=== PATIENT | female | born 1990 | race African-American/Black ===

== ENCOUNTER 2019-12-05 06:26 | Emergency (ER) | payer MEDICAID ==
[~2019-12-05] VITALS: Ht 157.5 cm; Wt 49.0 kg
--- NOTE | 2019-12-05 06:43 | NUR ---
Patient to the ER with c/o nausea and vomiting onset last night. Reports some abdominal discomfort after vomiting onset. No fever. LMP 11/26. Otherwise healthy with no daily medications. No urinary c/o
[2019-12-05] MEDS ORDERED: FAMOTIDINE 20 MG/2 ML ONE (06:57)
[2019-12-05] MEDS ORDERED: ONDANSETRON 2MG/ML, 2ML ONE (06:57)
[2019-12-05] MEDS ORDERED: FAMOTIDINE 20 MG/2 ML IV ONE (07:00)
[2019-12-05] MEDS ORDERED: SODIUM CHLORIDE FLUSH 10ML SYR IVF ONE (07:00)
[2019-12-05] MEDS ORDERED: ONDANSETRON 2MG/ML, 2ML IVPush ONE (07:00)
[2019-12-05] MEDS ORDERED: SODIUM CHLORIDE 0.9% 1,000ML IVBOLUS ONE (07:00)
--- NOTE | 2019-12-05 07:01 | NUR ---
Report given Zackary BHAGAT
--- NOTE | 2019-12-05 07:05 | NUR ---
report from rosana
[2019-12-05] MEDS ORDERED: ONDANSETRON ODT 8 MG ONE (07:17)
[2019-12-05] MEDS ORDERED: FAMOTIDINE 20 MG TABLET ONE (07:17)
[2019-12-05] MEDS ORDERED: FAMOTIDINE 20 MG TABLET PO ONE (07:30)
[2019-12-05] MEDS ORDERED: ONDANSETRON ODT 8 MG PO ONE (07:30)
--- NOTE | 2019-12-05 07:53 | NUR ---
PT STATES THE ZOFRAN HELPED A LITTLE. VSS. NO OTHER NEEDS
[2019-12-05 08:09] LABS: MEAN CORPUSCULAR HGB CONC 32.8 g/dL (32.4-35.8); MEAN CORPUSCULAR VOLUME 85.4 fL (80-100); MEAN PLATELET VOLUME 8.6 fL (7.4-10.4); PLATELET COUNT 389 x10^3/uL (130-400); RED BLOOD COUNT 4.67 x10^6/uL (3.82-5.3); RED CELL DISTRIBUTION WIDTH 14.8 % (9.6-15.2)
[2019-12-05 08:17] LABS: ALANINE AMINOTRANSFERASE 27 U/L (12-78); ALBUMIN 4.7 g/dL (3.4-5.0); ANION GAP 15 mmol/L (5-15); CALCIUM 10.5 mg/dL (8.5-10.1); CHLORIDE 99 mmol/L (98-107); CREATININE 0.94 mg/dL (0.55-1.02)
[2019-12-05 08:22] LABS: ALKALINE PHOSPHATASE 56 U/L (45-117); BILIRUBIN,TOTAL 0.5 mg/dL (0.2-1.0); TOTAL PROTEIN 9.9 g/dL (6.4-8.2)
[2019-12-05 08:43] LABS: BASOPHILS # (AUTO) 0.32 x10^3/uL (0-0.1); BASOPHILS % (AUTO) 2 % (0-1); EOSINOPHILS # (AUTO) 0.08 x10^3/uL (0-0.4); EOSINOPHILS % (AUTO) 1 % (1-7); LYMPHOCYTES # (AUTO) 0.56 x10^3/uL (1-3.4); LYMPHOCYTES % (AUTO) 4 % (22-44); MD SCAN; MONOCYTES # (AUTO) 0.74 x10^3/uL (0.2-0.8); MONOCYTES % (AUTO) 5 % (2-9); NEUTROPHILS # (AUTO) 12.81 x10^3/uL (1.8-6.8); NEUTROPHILS % (AUTO) 88 % (42-75)
[2019-12-05] MEDS ORDERED: PROMETHAZINE 25 MG/ML, 1ML ONE (08:46)
[2019-12-05 08:50] VITALS: BP 121/77
--- NOTE | 2019-12-05 08:52 | NUR ---
PT STILL NAUSEATED. TOLERATING PO OK. MEDICATED PER ORDERS.
[2019-12-05] MEDS ORDERED: PROMETHAZINE 25 MG/ML, 1ML IM ONE (09:00)
--- NOTE | 2019-12-05 09:40 | NUR ---
SLEEPING, BUT TOLERATING PO. VSS
--- NOTE | 2019-12-05 10:13 | NUR ---
Patient/Caregiver given discharge instructions and they have confirmed that they understand the instructions. Patient ambulatory with steady gait.
== END 2019-12-05 10:15 | disposition home or self-care (01) ==
LOC: ED 07:12
DX: R11.2 Nausea with vomiting, unspecified (principal)
CPT/HCPCS: 36415; 80053; 84703; 85025; 96372; 99283; J2550; Q0162

== ENCOUNTER 2019-12-06 16:18 | Observation (INO) | payer MEDICAID ==
[~2019-12-06] VITALS: Ht 157.5 cm; Wt 50.1 kg
--- NOTE | 2019-12-06 16:53 | NUR ---
PT BROUGHT BACK TO ROOM WHILE RN ON LUNCH. THIS RN ASSUMES CARE AT 1649. PT SITTING UP IN BED WITH EMESIS BAG, SPITTING INTO BAG, NO VOMITING. PT IN GOWN IN TO SEE PATIENT.
[2019-12-06] MEDS ORDERED: MAALOX/HYOSCYAMINE/LIDOCAINE 45 ML BTL PO ONE (17:00)
[2019-12-06] MEDS ORDERED: FAMOTIDINE 20 MG/2 ML IVPush ONE (17:00)
[2019-12-06] MEDS ORDERED: SODIUM CHLORIDE FLUSH 10ML SYR IVF ONE (17:00)
[2019-12-06] MEDS ORDERED: SODIUM CHLORIDE 0.9% 1,000ML IVBOLUS ONE ×2 (17:00→21:00)
[2019-12-06] MEDS ORDERED: ONDANSETRON 2MG/ML, 2ML IVPush ONE (17:00)
[2019-12-06] MEDS ORDERED: MAALOX/HYOSCYAMINE/LIDOCAINE 45 ML BTL ONE (17:15)
[2019-12-06] MEDS ORDERED: ONDANSETRON 2MG/ML, 2ML ONE (17:15)
[2019-12-06] MEDS ORDERED: FAMOTIDINE 20 MG/2 ML ONE (17:15)
[2019-12-06 17:19] LABS: BASOPHILS # (AUTO) 0.06 x10^3/uL (0-0.1); BASOPHILS % (AUTO) 0 % (0-1); EOSINOPHILS # (AUTO) 0.04 x10^3/uL (0-0.4); EOSINOPHILS % (AUTO) 0 % (1-7); LYMPHOCYTES # (AUTO) 1.08 x10^3/uL (1-3.4); LYMPHOCYTES % (AUTO) 7 % (22-44); MD NO; MEAN CORPUSCULAR HEMOGLOBIN 27.6 pg (27.0-34.8); MEAN CORPUSCULAR HGB CONC 32.6 g/dL (32.4-35.8); MEAN CORPUSCULAR VOLUME 84.7 fL (80-100); MONOCYTES # (AUTO) 0.99 x10^3/uL (0.2-0.8); MONOCYTES % (AUTO) 7 % (2-9); NEUTROPHILS # (AUTO) 12.78 x10^3/uL (1.8-6.8); NEUTROPHILS % (AUTO) 86 % (42-75); PLATELET COUNT 401 x10^3/uL (130-400); RED BLOOD COUNT 4.95 x10^6/uL (3.82-5.3); RED CELL DISTRIBUTION WIDTH 14.6 % (9.6-15.2)
[2019-12-06 17:25] LABS: ALANINE AMINOTRANSFERASE 25 U/L (12-78); ALBUMIN 4.7 g/dL (3.4-5.0); ANION GAP 15 mmol/L (5-15); CALCIUM 10.5 mg/dL (8.5-10.1); CHLORIDE 94 mmol/L (98-107); CREATININE 1.03 mg/dL (0.55-1.02)
--- NOTE | 2019-12-06 17:25 | NUR ---
IV PLACED AND MEDICATIONS GIVEN. PT STABLE. US AT BEDSIDE FOR US OF ABDOMEN. PT INSTRUCTED PROGRAM OR PROJECT ADMINISTRATOR LIGHT AND IT'S USE.
[2019-12-06 17:30] LABS: ALKALINE PHOSPHATASE 52 U/L (45-117); BILIRUBIN,TOTAL 0.5 mg/dL (0.2-1.0); TOTAL PROTEIN 9.9 g/dL (6.4-8.2)
--- NOTE | 2019-12-06 17:50 | NUR ---
PT INFORMED OF NEEDING TO OBTAIN A UA. CUP AT BEDSIDE, AND INSTRUCTIONS GIVEN TO PATIENT. 1L BOLUS HAS FINISHED INFUSING SO HOPEFULLY SOON UP FOR UA.
[2019-12-06] MEDS ORDERED: POTASSIUM CHLORIDE 20 MEQ TAB.ER.PRT PO ONE (18:30)
--- NOTE | 2019-12-06 18:43 | NUR ---
PT N/V GONE. PT INFORMED THAT WE REALLY NEED URINE FOR TESTING.
[2019-12-06] MEDS ORDERED: POTASSIUM CHLORIDE 20 MEQ TAB.ER.PRT ONE (18:50)
--- NOTE | 2019-12-06 19:30 | NUR ---
CONTINUED WITH NAUSEA AFTER TAKING POTASSIUM PILLS. NOTE IN FOR MD TO ORDER OR ADDRESS ISSUE.
[2019-12-06 19:43] LABS: MICROSCOPIC INDICATED
[2019-12-06] MEDS ORDERED: PROMETHAZINE 25 MG/ML, 1ML IM ONE (20:00)
[2019-12-06] MEDS ORDERED: OMNIPAQUE 350 MG/ML, 100ML BOTTLE ONE (20:22)
[2019-12-06] MEDS ORDERED: PROMETHAZINE 25 MG/ML, 1ML ONE (20:26)
--- NOTE | 2019-12-06 20:30 | NUR ---
ORDER FOR 25MG PHENERGAN IM, AND ADDITIONAL CT WITH CONTRAST. PT STABLE. WILL CONTINUE TO MONITOR.
--- NOTE | 2019-12-06 21:33 | NUR ---
SECOND LITER OF FLUIDS UP AND RUNNING.
[2019-12-06] MEDS ORDERED: POTASSIUM CHLORIDE 40 MEQ in SODIUM CHLORIDE 0.9% 1,000 ML IV ONE (21:40)
[2019-12-06] MEDS ORDERED: SODIUM CHLORIDE FLUSH 10ML SYR IVF PRN (22:00)
[2019-12-06] MEDS ORDERED: ONDANSETRON 2MG/ML, 2ML IVPush PRN (22:00)
--- NOTE | 2019-12-06 22:09 | NUR ---
REPORT TO WYATT BHAGAT. REQUEST TO SEND NS/KCL BAG TO FLOOR AND SHE WILL START THE FLUIDS UPSTAIRS. PT IS READY FOR DISCHARGE TO FLOOR. STATES "I FEEL BETTER AFTER THAT FLUID AGAIN". PT IS [place] FROM [facility].
[2019-12-06] MEDS ORDERED: SODIUM CHLORIDE 0.9% 1,000 ML IV SCH (22:29)
[2019-12-06] MEDS ORDERED: ACETAMINOPHEN 325 MG TABLET PO PRN (22:30)
[2019-12-06] MEDS ORDERED: LORazepam 2 MG/ML, 1ML IVPush PRN (22:30)
[2019-12-06] MEDS: NS + 40MEQ KCL 1,000 ML IV SCH (23:00)
[2019-12-06] MEDS ORDERED: DICYCLOMINE 10 MG/ML, 2ML IM PRN (23:00)
[2019-12-06] MEDS: METOCLOPRAMIDE 5 MG/ML, 2ML IVPush PRN (23:14)
[2019-12-06] MEDS: HEPARIN 5,000 UNITS/ML, 1ML SQ SCH (23:14)
[2019-12-07 00:35] VITALS: BP 115/76
[2019-12-07 05:52] LABS: ANION GAP 9 mmol/L (5-15); CALCIUM 8.9 mg/dL (8.5-10.1); CHLORIDE 108 mmol/L (98-107); CREATININE 0.84 mg/dL (0.55-1.02)
[2019-12-07 06:25] LABS: BASOPHILS # (AUTO) 0.03 x10^3/uL (0-0.1); BASOPHILS % (AUTO) 0 % (0-1); EOSINOPHILS % (AUTO) 0 % (1-7); LYMPHOCYTES # (AUTO) 1.83 x10^3/uL (1-3.4); LYMPHOCYTES % (AUTO) 16 % (22-44); MD SCAN; MEAN CORPUSCULAR HEMOGLOBIN 27.7 pg (27.0-34.8); MEAN CORPUSCULAR HGB CONC 32.6 g/dL (32.4-35.8); MEAN CORPUSCULAR VOLUME 85.1 fL (80-100); MEAN PLATELET VOLUME 9.1 fL (7.4-10.4); MONOCYTES % (AUTO) 7 % (2-9); NEUTROPHILS # (AUTO) 8.88 x10^3/uL (1.8-6.8); NEUTROPHILS % (AUTO) 77 % (42-75); PLATELET COUNT 265 x10^3/uL (130-400); RED CELL DISTRIBUTION WIDTH 14.9 % (9.6-15.2)
[2019-12-07 07:42] VITALS: BP 120/74
[2019-12-07] MEDS: HEPARIN 5,000 UNITS/ML, 1ML SQ SCH (07:46)
[2019-12-07] MEDS: FAMOTIDINE 20 MG/2 ML IVPush SCH ×2 (07:46→20:37)
[2019-12-07] MEDS: PROMETHAZINE 25 MG/ML, 1ML IM PRN ×2 (08:45→22:02)
[2019-12-07] MEDS: NS + 40MEQ KCL 1,000 ML IV SCH (13:24)
[2019-12-07] MEDS: METOCLOPRAMIDE 5 MG/ML, 2ML IVPush PRN ×2 (13:25→20:38)
[2019-12-07 14:26] VITALS: BP 112/75
[2019-12-07 18:45] VITALS: BP 110/74
[2019-12-08 00:19] VITALS: BP 144/85
[2019-12-08] MEDS: NS + 40MEQ KCL 1,000 ML IV SCH ×2 (02:13→16:03)
[2019-12-08 05:12] LABS: BASOPHILS # (AUTO) 0.05 x10^3/uL (0-0.1); BASOPHILS % (AUTO) 1 % (0-1); EOSINOPHILS # (AUTO) 0.04 x10^3/uL (0-0.4); EOSINOPHILS % (AUTO) 1 % (1-7); LYMPHOCYTES # (AUTO) 2.13 x10^3/uL (1-3.4); LYMPHOCYTES % (AUTO) 22 % (22-44); MD NO; MEAN CORPUSCULAR HEMOGLOBIN 27.7 pg (27.0-34.8); MEAN CORPUSCULAR VOLUME 86.7 fL (80-100); MEAN PLATELET VOLUME 8.5 fL (7.4-10.4); MONOCYTES % (AUTO) 6 % (2-9); NEUTROPHILS # (AUTO) 6.74 x10^3/uL (1.8-6.8); NEUTROPHILS % (AUTO) 71 % (42-75); PLATELET COUNT 273 x10^3/uL (130-400); RED BLOOD COUNT 4.26 x10^6/uL (3.82-5.3); RED CELL DISTRIBUTION WIDTH 15.2 % (9.6-15.2)
[2019-12-08 05:23] LABS: ANION GAP 8 mmol/L (5-15); CALCIUM 8.8 mg/dL (8.5-10.1); CHLORIDE 104 mmol/L (98-107)
[2019-12-08 05:25] LABS: CREATININE 0.66 mg/dL (0.55-1.02)
[2019-12-08 07:51] VITALS: BP 114/77
[2019-12-08] MEDS: METOCLOPRAMIDE 5 MG/ML, 2ML IVPush PRN ×2 (09:19→20:22)
[2019-12-08] MEDS: FAMOTIDINE 20 MG/2 ML IVPush SCH ×2 (09:19→20:22)
[2019-12-08 13:57] VITALS: BP 104/70
[2019-12-08 19:37] VITALS: BP 124/79
[2019-12-09 01:46] VITALS: BP 114/72
[2019-12-09] MEDS: NS + 40MEQ KCL 1,000 ML IV SCH ×2 (04:29→21:07)
[2019-12-09 06:10] LABS: ANION GAP 10 mmol/L (5-15); CHLORIDE 102 mmol/L (98-107)
[2019-12-09 06:12] LABS: CREATININE 0.67 mg/dL (0.55-1.02)
[2019-12-09 07:41] VITALS: BP 102/67
[2019-12-09] MEDS: FAMOTIDINE 20 MG/2 ML IVPush SCH ×2 (07:59→21:07)
[2019-12-09 14:11] VITALS: BP 112/75
[2019-12-09 19:55] VITALS: BP 118/82
[2019-12-10 01:25] VITALS: BP 104/68
[2019-12-10 05:53] LABS: ANION GAP 9 mmol/L (5-15); CALCIUM 8.8 mg/dL (8.5-10.1); CHLORIDE 104 mmol/L (98-107); CREATININE 0.67 mg/dL (0.55-1.02)
[2019-12-10] MEDS: FAMOTIDINE 20 MG/2 ML IVPush SCH (07:20)
[2019-12-10 07:30] VITALS: BP 100/66
[2019-12-10] MEDS: NS + 40MEQ KCL 1,000 ML IV SCH (08:25)
[2019-12-10] MEDS ORDERED: ONDA4TAB7 PO (10:24)
[2019-12-10] MEDS ORDERED: FAMO40TA4 PO (11:22)
[2019-12-10 13:03] VITALS: BP 110/70
== END 2019-12-10 13:46 | disposition home or self-care (01) ==
LOC: ED 18:37 → EDIP 21:43 → INTOOBSV 21:43 → 3N 22:48
PROVIDERS: ADMIT Family Medicine; ATTEND Internal Medicine Infectious Disease
DX: K52.9 Noninfective gastroenteritis and colitis, unspecified (principal); R11.10 Vomiting, unspecified; E87.1 Hypo-osmolality and hyponatremia; D72.828 Other elevated white blood cell count; E86.0 Dehydration; E87.6 Hypokalemia; F12.10 Cannabis abuse, uncomplicated; Z79.899 Other long term (current) drug therapy
CPT/HCPCS: 36415; 71045; 74177; 76700; 80048; 80053; 81001; 83605; 83690; 83735; 84703; 85025; 87086; 96361; 96365; 96366; 96367; 96372; 96375; 96376; 99285; G0378; J1644; J2405; J2550; J2765; J3480; J3490; J7030; Q9967; 96374